=== PATIENT | male | born 1990 | race Caucasian/White ===

== ENCOUNTER 2016-07-04 11:15 | Emergency (ER) | payer SELFPAY ==
[2016-07-04] MEDS ORDERED: HYDROMORPHONE HCL 1 MG/ML CPJ IVP ONE ×2 (11:25→15:19)
[2016-07-04] MEDS ORDERED: ONDANSETRON HCL IV 4 MG/2 ML VIAL IVP ONE ×2 (11:25→15:50)
[2016-07-04] MEDS ORDERED: 0.9 % SODIUM CHLORIDE 1,000 ML BAG IV ONE (11:25)
[2016-07-04] MEDS ORDERED: KETOROLAC 30 MG/ML VIAL IVP ONE (11:30)
--- NOTE | 2016-07-04 11:34 | Emergency Department Record ---
History of Present Illness - General Chief complaint: Flank Pain Stated complaint: FRONT/BACK PAIN Time Seen by Provider: 07/04/16 11:25 Source: Patient Mode of Arrival: Ambulatory Limitations: No limitations - History of Present Illness Initial comments: 26 yo male presents with flank pain that started about 2 hours ago. It started abruptly. It is sharp. It is similar pain to prior renal stones. He had a stone about 2 months ago. No fevers or chills. He has associated nausea. No surgical history. MD Complaint: Other (flank pain) Onset/Timin -: Hour(s) Location: Left flank, Right flank, Left inguinal region, Right inguinal region Severity: Moderate Severity scale (1-10): 10 Quality: Sharp, Stabbing Consistency: Constant Improves with: None Worsens with: None - Related Data Previous Rx's Medication Instructions Recorded Hydrocodone/Acetaminophen [[place] 1 tab PO Q6H PRN #15 tab 07/04/16 5mg/325mg] Tamsulosin HCl [Flomax] 0.4 mg PO DAILY #15 cap.er.24h 07/04/16 Allergies Allergy/AdvReac Type Severity Reaction Status Date / Time No Known Drug Allergies Allergy Verified 07/04/16 11:22 Travel Screening - Travel/Exposure Within Last 30 Days Have you traveled within the last 30 days?: No - Travel/Exposure Within Last Year Have you traveled outside the [place] in the last year?: No - Additonal Travel Details Have you been exposed to anyone with a communicable illness?: No - Travel Symptoms Symptom Screening: None Review of Systems Constitutional: Denies: Chills, Fever, Malaise, Weakness Eyes: Denies: Eye discharge ENT: Denies: Congestion, Throat pain Respiratory: Denies: Cough, Dyspnea Cardiovascular: Denies: Chest pain, Palpitations, Syncope Endocrine: Denies: Fatigue Gastrointestinal: Reports: As per HPI, Abdominal pain, Nausea, Vomiting. Denies : Diarrhea, Hematemesis, Hematochezia Genitourinary: Reports: Hematuria. Denies: Dysuria, Incontinence, Retention, Urgency Musculoskeletal: Reports: Back pain. Denies: Arthralgia, Myalgia, Neck pain Skin: Denies: Bruising, Change in color, Rash Neurological: Denies: Headache Psychiatric: Denies: Anxiety Hematological/Lymphatic: Denies: Blood Clots, Easy bleeding, Easy bruising, Swollen glands Past Medical History - SOCIAL HISTORY Smoking Status: Current every day smoker - RESPIRATORY Hx Respiratory Disorders: No - CARDIOVASCULAR Hx Cardio Disorders: No - NEURO Hx Neuro Disorders: No - GI Hx GI Disorders: No - Hx Genitourinary Disorders: Yes Hx Kidney Stones: Yes - ENDOCRINE Hx Endocrine Disorders: No - MUSCULOSKELETAL Hx Musculoskeletal Disorders: No - PSYCH Hx Psych Problems: No - HEMATOLOGY/ONCOLOGY Hx Hematology/Oncology Disorders: No Family Medical History Any Significant Family History?: Yes Physical Exam - General General Appearance: Alert, Oriented x3, Cooperative, Anxious (dueo to pain) Limitations: No limitations - Head Head exam: Normal inspection - Eye Eye exam: Normal appearance, PERRL. negative: Conjunctival injection Pupils: Normal accommodation - ENT ENT exam: Normal exam Ear exam: Normal external inspection Nasal Exam: Normal inspection - Neck Neck exam: Normal inspection, Full ROM. negative: Tenderness - Respiratory Respiratory exam: Normal lung sounds bilaterally. negative: Respiratory distress - Cardiovascular Cardiovascular Exam: Regular rate, Normal rhythm, Normal heart sounds - GI/Abdominal GI/Abdominal exam: Soft. negative: Distended, Guarding, Hernia, Rebound, Rigid , Tenderness - Rectal Rectal exam: Deferred - exam: Deferred - Extremities Extremities exam: Normal inspection, Full ROM, Normal capillary refill. negative: Tenderness - Back Back exam: Reports: Normal inspection, CVA tenderness (R), CVA tenderness (L), Full ROM, Tenderness - Neurological Neurological exam: Alert, Normal gait, Oriented X3, Reflexes normal - Psychiatric Psychiatric exam: Normal affect, Normal mood - Skin Skin exam: Dry, Intact, Normal color, Warm Course - Reevaluation(s) Reevaluation #1: EMR reviewed. Normal prior renal function. CT in 04/2016 demonstrated 4.9mm left sided stone. He did not follow up after that visit given his pain resolved. Further review a CT demonstrated a left ureteral stone also in March. 07/04/16 11:31 07/04/16 11:36 Reevaluation #2: No acute changes on the CBC or CMP CT pending 07/04/16 12:14 Reevaluation #3: The CT demonstrates interval migration of the stone to the bladder or UVJ junction 07/04/16 12:51 The patient was informed of the results His pain is well controlled at 06/30 I explained that the stone has either passed or right at the UVJ He is afebrile, normal WBC count. Will wait to review UA. 07/04/16 12:55 Reevaluation #4: Patient continues to do well with controlled pain Waiting for a UA 07/04/16 14:11 UA just provided Pain is returning now 10 UA is negative for infection with negative LE, negative N, no bacteria or WBC's 07/04/16 15:18 07/04/16 15:43 Reevaluation #5: Given the persist pain and retain stone for 3 months I DANILO Warner of [facility] He will accept ER to ER transfer and likely going to the OR for removal I DANILO Amador of the ED who accepts the patient for transfer. The Patient has been NPO and agrees with the place for surgery 07/04/16 15:57 Medical Decision Making - Lab Data Result diagrams: 07/04/16 11:25 07/04/16 11:38 Disposition Disposition: Transfer Clinical Impression: Kidney stone on left side Disposition: Acute Care Hospital Transfer Transfer To: [facility] Reason For Transfer: Retained Renal Stone Accepting Physician: Brittany Time Discussed w/Accepting Physician: 16:00 Condition: (1) Good Instructions: Renal Colic (ED) Prescriptions: Tamsulosin HCl [Flomax] 0.4 mg PO DAILY #15 cap.er.24h Hydrocodone/Acetaminophen [[place] 5mg/325mg] 1 tab PO Q6H PRN #15 tab PRN Reason: Pain - General Forms: Patient Portal Access Time of Disposition: 15:58
[2016-07-04 11:39] LABS: GRAN % 6.5 % (47-80); HEMATOCRIT 49.6 % (42.0-52.0); HEMOGLOBIN 16.8 gm/dl (14.0-18.0); LYMPH % 2.3 % (16-45); MEAN CELL VOLUME 81.3 fl (81-97); MEAN CORPUSCULAR HEMOGLOBIN 27.5 pg (27-33); MEAN CORPUSCULAR HGB CONC 33.9 g/dl (32-36); MEAN PLATELET VOLUME 12.3 fl (7.4-10.4); PLATELET COUNT 189 K/uL (130-400); WHITE BLOOD COUNT W/O DIFF 9.9 K/uL (4.2-12.2)
[2016-07-04 11:40] LABS: EOS % 0.2 % (0-6); MONO % 0.8 % (0-9)
[2016-07-04 11:48] LABS: ANION GAP 14.4 (7-16); BLOOD UREA NITROGEN 15 mg/dL (9-20); CARBON DIOXIDE 26.6 mmol/L (22-30); EST GLOMERULAR FILTRATION RATE > 60 ml/min; GLUCOSE,RANDOM 124 mg/dL (70-110)
[2016-07-04] MEDS ORDERED: PROMETHAZINE HCL 25 MG/ML VIAL IVP ONE (12:02)
[2016-07-04] MEDS ORDERED: TAMSULOSIN HCL 0.4 MG CAP.ER.24H PO ONE (12:58)
[2016-07-04] MEDS ORDERED: 0.9 % SODIUM CHLORIDE 1000ML 1,000 ML IV ONE (13:48)
[2016-07-04 15:21] LABS: URINE APPEARANCE SL CLOUDY; URINE BILIRUBIN NEGATIVE (NEGATIVE); URINE BLOOD LARGE (NEGATIVE); URINE COLOR ORANGE; URINE GLUCOSE (UA) NEGATIVE (NEGATIVE); URINE KETONE NEGATIVE (NEGATIVE); URINE LEUKOCYTE ESTERASE NEGATIVE (NEGATIVE); URINE NITRITE NEGATIVE (NEGATIVE); URINE PROTEIN TRACE (NEGATIVE); URINE UROBILINOGEN 0.2 E.U./dL (0.20 - 1.00)
[2016-07-04 15:35] LABS: URINE BACTERIA NONE SEEN; URINE CALCIUM OXALATE CRYSTALS 1+ /hpf; URINE EPITHELIAL CELLS 0 - 2 (FEW); URINE WBC NONE SEEN (0-2/hpf)
--- NOTE | 2016-07-08 09:37 | CT SCAN REPORT ---
EXAM: CT OF THE ABDOMEN AND PELVIS WITHOUT CONTRAST HISTORY: FLANK PAIN. PREVIOUS LEFT SIDED STONE. TECHNIQUE: Routine noncontrast CT images of the abdomen and pelvis were obtained. Comparison: 04/26/16. FINDINGS: There is mild bibasilar atelectasis. The liver, gallbladder, pancreas, spleen, and adrenals have a normal noncontrast appearance. There is redemonstration of mild to moderate left hydronephrosis. Interval migration of previously noted left ureteral calculus now located within the posterior bladder at the level of the UVJ. The calculus measures approximately 4-5 mm in size. This could relate to a recently passed bladder calculus versus calculus within the UVJ. The bowel is normal in caliber. The appendix has a normal noncontrast appearance. No abdominal or pelvic lymphadenopathy. The aorta is normal in caliber. No free air or free fluid. Tiny fat containing periumbilical hernia. No acute osseous abnormality. IMPRESSION: INTERVAL MIGRATION OF PREVIOUSLY NOTED LEFT URETERAL CALCULUS. IT IS NOW LOCATED AT THE LEVEL OF THE UVJ. THIS COULD RELATE TO CALCULUS AT THE UVJ VERSUS WITHIN THE BLADDER. NOTE IS MADE OF MODERATE LEFT HYDRONEPHROSIS AND HYDROURETER. JOB NUMBER: [id number] [facility]
== END 2016-07-04 16:23 | disposition short-term general hospital (02) ==
LOC: ER 11:15
DX: N13.2 Hydronephrosis with renal and ureteral calculous obstruction (principal); R11.0 Nausea; Z87.442 Personal history of urinary calculi
CPT/HCPCS: 99285 ×2; 96376; 96374; 96375; 96361; 85025; 80048; 81001; 74176; J1885; J2405; J1170; J2550; J7030

== ENCOUNTER 2016-07-05 21:03 | Emergency (ER) | payer SELFPAY ==
[2016-07-05] MEDS ORDERED: ONDANSETRON HCL IV 4 MG/2 ML VIAL IVP ONE (21:31)
[2016-07-05] MEDS ORDERED: MORPHINE SULFATE 5 MG/ML PFS IVP ONE (21:31)
--- NOTE | 2016-07-05 21:40 | Emergency Department Record ---
History of Present Illness - General Chief Complaint: Abdominal Pain Stated Complaint: KIDNEY STONE PAIN WORSE Time Seen by Provider: 07/05/16 21:31 Source: Patient Mode of Arrival: Ambulatory Limitations: No limitations - History of Present Illness Initial Comments: 26 yo male presents to ED with a CC of left sided "kidney pain", nausea, and vomiting. Patient was seen yesterday and diagnosed with an obstructing kidney stone on the left, sent to [facility] where a stent was placed by Urology. Patient states that his pain worsened today. Patient denies fevers, chills, or recent illness. Patient does not know the name of the urologist who placed the stent. MD Complaint: Flank pain Onset/Timin -: Days(s) Location: L Flank Radiation: LUQ, LLQ Severity: Severe Quality: Sharp, Stabbing Consistency: Constant Improves With: Nothing Worsens With: Nothing Context: Recent surgery/procedure Associated Symptoms: Nausea, Vomiting - Related Data Previous Rx's Medication Instructions Recorded Hydrocodone/Acetaminophen [[place] 1 tab PO Q6H PRN #15 tab 07/04/16 5mg/325mg] Tamsulosin HCl [Flomax] 0.4 mg PO DAILY #15 cap.er.24h 07/04/16 Ondansetron [Zofran Odt] 4 mg PO Q4H PRN #20 tab.rapdis 07/05/16 Allergies Allergy/AdvReac Type Severity Reaction Status Date / Time No Known Drug Allergies Allergy Verified 07/04/16 11:22 Travel Screening - Travel/Exposure Within Last 30 Days Have you traveled within the last 30 days?: No - Travel/Exposure Within Last Year Have you traveled outside the [place] in the last year?: No - Additonal Travel Details Have you been exposed to anyone with a communicable illness?: No - Travel Symptoms Symptom Screening: None Review of Systems Constitutional: Denies: Chills, Fever, Malaise, Night sweats Eyes: Denies: Eye discharge, Eye pain ENT: Denies: Congestion, Ear pain, Epistaxis Respiratory: Denies: Cough, Dyspnea Cardiovascular: Denies: Chest pain, Dyspnea on exertion Endocrine: Denies: Fatigue, Heat or cold intolerance Gastrointestinal: Reports: Abdominal pain, Nausea, Vomiting. Denies: Constipation Genitourinary: Reports: Hematuria. Denies: Incontinence, Retention, Testicular pain Musculoskeletal: Reports: Back pain. Denies: Arthralgia, Gout, Joint swelling Skin: Denies: Bruising, Change in color Neurological: Denies: Abnormal gait, Confusion, Headache, Seizure Psychiatric: Denies: Anxiety Hematological/Lymphatic: Denies: Anemia, Blood Clots Past Medical History - SOCIAL HISTORY Smoking Status: Current every day smoker Alcohol Use: Rare Drug Use Detail:: Marijuana - RESPIRATORY Hx Respiratory Disorders: No - CARDIOVASCULAR Hx Cardio Disorders: No - NEURO Hx Neuro Disorders: No - GI Hx GI Disorders: No - Hx Genitourinary Disorders: Yes Hx Kidney Stones: Yes - ENDOCRINE Hx Endocrine Disorders: No - MUSCULOSKELETAL Hx Musculoskeletal Disorders: No - PSYCH Hx Psych Problems: No - HEMATOLOGY/ONCOLOGY Hx Hematology/Oncology Disorders: No Family Medical History Any Significant Family History?: No Physical Exam - General General Appearance: Alert, Oriented x3, Cooperative, Moderate distress (due to pain symptoms) Limitations: No limitations - Head Head exam: Atraumatic, Normocephalic, Normal inspection Head exam detail: negative: Abrasion, Contusion, Crooks's sign, General tenderness, Hematoma, Laceration - Eye Eye exam: Normal appearance. negative: Conjunctival injection, Periorbital swelling, Periorbital tenderness, Scleral icterus - ENT Ear exam: negative: Auricular hematoma, Auricular trauma Nasal Exam: negative: Active bleeding, Discharge, Dried blood, Foreign body Mouth exam: negative: Drooling, Laceration, Muffled voice, Tongue elevation - Neck Neck exam: Normal inspection. negative: Meningismus, Tenderness - Respiratory Respiratory exam: Normal lung sounds bilaterally. negative: Respiratory distress, Rhonchi, Stridor, Wheezes - Cardiovascular Cardiovascular Exam: Regular rate, Normal rhythm, Normal heart sounds - GI/Abdominal GI/Abdominal exam: Soft, Tenderness (TTP LLQ on examination, no rebound, guarding or peritoneal signs). negative: Pulsatile mass, Rebound, Rigid - Rectal Rectal exam: Deferred - exam: Deferred - Extremities Extremities exam: Normal inspection. negative: Calf tenderness, Pedal edema, Tenderness - Back Back exam: Reports: CVA tenderness (L). Denies: CVA tenderness (R) - Neurological Neurological exam: Alert, Normal gait, Oriented X3 - Psychiatric Psychiatric exam: Normal affect, Normal mood - Skin Skin exam: Normal color. negative: Abrasion Type of lesion: negative: abrasion Course Vital Signs 07/05/16 21:14 Pulse Rate [ 92 H Pulse Ox Probe] Respiratory 20 Rate Blood Pressure 135/89 [Left Arm] Pulse Ox 97 - Reevaluation(s) Reevaluation #1: 07/05/16 21:38 CT Abdomen and Pelvis reviewed 07/04/16: 4-5 mm obstructing stone to the left UVJ[facility], [facility] was [facility] by Dr. Brodie Warner. UA obtained, will exclude infection and transfer for US and urological evaluation. Reevaluation #2: 07/05/16 21:55 UA reviewed, RBCs TNTC, no bacteria. [facility]. Reevaluation #3: 07/05/16 22:06 Case was discussed with Dr. Warner, will perform KUB film and administer Ditropan and Toradol in ED and reassess. Reevaluation #4: 07/05/16 22:49 Labs reviewed, WBC 20.6, no evidence of infection in the UA. WBC is likely elevated due to recent surgery and vomiting episodes. Abdominal x-ray: Ureteral stent appears in satisfactory positioning. Patient reassessed, reports that his pain symptoms are down to 3/10. Patient appears stable for discharge at this time with instructions to follow-up with Dr. Warenr in 1-3 days as directed. Medical Decision Making - Lab Data Result diagrams: 07/05/16 21:23 07/05/16 21:23 Disposition Disposition: Discharge Clinical Impression: Flank pain Disposition: Home, Self-Care Condition: (2) Stable Instructions: Flank Pain (ED) Additional Instructions: Return to ED if your symptoms worsen or if you have any concerns. Zofran as directed in addition to Ditropan and [place] that has been previously prescribed. Follow-up with Dr. Warner in 1-3 days as directed. Prescriptions: Ondansetron [Zofran Odt] 4 mg PO Q4H PRN #20 tab.rapdis PRN Reason: Nausea/Vomiting Forms: Patient Portal Access Time of Disposition: 22:54
[2016-07-05 21:44] LABS: URINE APPEARANCE CLOUDY; URINE BILIRUBIN MODERATE (NEGATIVE); URINE BLOOD LARGE (NEGATIVE); URINE COLOR RED; URINE GLUCOSE (UA) NEGATIVE (NEGATIVE); URINE KETONE TRACE (NEGATIVE); URINE LEUKOCYTE ESTERASE MODERATE (NEGATIVE)
[2016-07-05] MEDS ORDERED: 0.9 % SODIUM CHLORIDE 1000ML 1,000 ML IV SCH (21:45)
[2016-07-05 21:46] LABS: URINE NITRITE NEGATIVE (NEGATIVE); URINE PROTEIN 300 mg/dL (NEGATIVE)
[2016-07-05 21:48] LABS: URINE BACTERIA NONE SEEN; URINE EPITHELIAL CELLS 0 - 2 (FEW); URINE RBC TNTC (NONE SEEN); URINE WBC 0 - 2 (0-2/hpf)
[2016-07-05] MEDS ORDERED: OXYBUTYNIN CHLORIDE 5MG TABLET PO ONE (22:04)
[2016-07-05] MEDS ORDERED: KETOROLAC 30 MG/ML VIAL IVP ONE (22:04)
[2016-07-05 22:15] LABS: HEMATOCRIT 45.1 % (42.0-52.0); HEMOGLOBIN 15.3 gm/dl (14.0-18.0); MEAN CELL VOLUME 81.6 fl (81-97); MEAN CORPUSCULAR HEMOGLOBIN 27.7 pg (27-33); MEAN CORPUSCULAR HGB CONC 33.9 g/dl (32-36); MEAN PLATELET VOLUME 12.9 fl (7.4-10.4); PLATELET COUNT 182 K/uL (130-400); RED BLOOD COUNT 5.53 M/uL (4.40-5.70); RED CELL DISTRIBUTION WIDTH 13.4 % (11.5-14.5)
[2016-07-05 22:20] LABS: WHITE BLOOD COUNT W/O DIFF 20.6 K/uL (4.2-12.2)
[2016-07-05 22:27] LABS: ALB/GLOB RATIO 1.7 (1.1-1.8); ALBUMIN 4.6 gm/dL (3.5-5.0); ALKALINE PHOSPHATASE 101 U/L (38-126); ALT/SGPT 57 U/L (21-72); ANION GAP 16.2 (7-16); AST/SGOT 37 U/L (17-59); BILIRUBIN,TOTAL 0.59 mg/dL (0.2-1.3); BLOOD UREA NITROGEN 13 mg/dL (9-20); CARBON DIOXIDE 25.8 mmol/L (22-30); CREATININE 0.8 mg/dL (0.66-1.25); EST GLOMERULAR FILTRATION RATE > 60 ml/min; GLUCOSE,RANDOM 96 mg/dL (70-110); TOTAL PROTEIN 7.3 gm/dL (6.3-8.2)
[2016-07-05] MEDS ORDERED: ONDANSETRON 4 MG ODT TABLET SL ONE (22:56)
--- NOTE | 2016-07-09 08:36 | RADIOLOGY REPORT ---
EXAM: ABDOMEN KUB, TWO VIEWS HISTORY: STENT PLACEMENT LEFT SIDE KIDNEY STONE. HEMATURIA. TECHNIQUE: Two views of the abdomen KUB was obtained. Comparison: Abdomen and pelvis CT 07/04/16. FINDINGS: Left internal ureteral stent in place. No suspicious calcifications. Nonobstructed bowel gas pattern. IMPRESSION: LEFT INTERNAL URETERAL STENT IN PLACE. NO SUSPICIOUS CALCIFICATIONS. JOB NUMBER: [id number] MTDD
== END 2016-07-05 23:08 | disposition home or self-care (01) ==
LOC: ER 21:03
DX: R10.32 Left lower quadrant pain (principal); R11.2 Nausea with vomiting, unspecified; N20.0 Calculus of kidney; Z96.0 Presence of urogenital implants; Z87.442 Personal history of urinary calculi
CPT/HCPCS: 99284 ×2; 96374; 96375; 96361; 80053; 81001; 85027; 74000; J1885; J2405; J3490; J2270; J7030

== ENCOUNTER 2016-07-06 14:10 | Emergency (ER) | payer SELFPAY ==
--- NOTE | 2016-07-06 14:29 | Emergency Department Record ---
History of Present Illness - General Chief complaint: Male Urogenital Problem Stated complaint: SEVERE BACK PAIN (KIDNEY) Time Seen by Provider: 07/06/16 14:28 Source: Patient Mode of Arrival: Ambulatory Limitations: No limitations - History of Present Illness Initial comments: The patient is here due to a worsening of his L flank pain. He was here in the ED 2 days ago and diagnosed with a 5 mm L UVJ stone and was transferred to [facility] where Dr. Warner placed a L ureteral stent. The patient returned last evening due to increasing pain and was treated with pain medicines and discharged home about 12 hours ago. Now the patient states his pain returned about 10 hours ago and due to the severe nature of the pain he decided to return to [facility]. He denies any fever or chills. MD Complaint: Dysuria, Other Onset/Timin -: Days(s) Location: Left flank, Left testicle Radiation: L flank Severity: Severe Severity scale (1-10): 10 Quality: Sharp, Stabbing Consistency: Intermittent Improves with: Other Worsens with: None Reports: Blood in urine - Related Data Sexually active: Yes Previous Rx's Medication Instructions Recorded Hydrocodone/Acetaminophen [[place] 1 tab PO Q6H PRN #15 tab 07/04/16 5mg/325mg] Tamsulosin HCl [Flomax] 0.4 mg PO DAILY #15 cap.er.24h 07/04/16 Ondansetron [Zofran Odt] 4 mg PO Q4H PRN #20 tab.rapdis 07/05/16 Hydrocodone/Acetaminophen [[place] 1 - 2 each PO .EVERY 4-6 HRS PRN 07/06/16 5-325 Tablet] #20 tablet Allergies Allergy/AdvReac Type Severity Reaction Status Date / Time No Known Drug Allergies Allergy Verified 07/06/16 14:18 Travel Screening - Travel/Exposure Within Last 30 Days Have you traveled within the last 30 days?: No - Travel/Exposure Within Last Year Have you traveled outside the [place] in the last year?: No - Additonal Travel Details Have you been exposed to anyone with a communicable illness?: No - Travel Symptoms Symptom Screening: None Review of Systems Constitutional: Denies: Chills, Fever Eyes: Denies: Eye discharge ENT: Denies: Congestion Respiratory: Denies: Cough, Dyspnea Past Medical History - SOCIAL HISTORY Smoking Status: Current some day smoker Alcohol Use: Rare Drug Use: Heavy Drug Use Detail:: Marijuana - RESPIRATORY Hx Respiratory Disorders: No - CARDIOVASCULAR Hx Cardio Disorders: No - NEURO Hx Neuro Disorders: No - GI Hx GI Disorders: No - Hx Genitourinary Disorders: Yes Hx Kidney Stones: Yes - ENDOCRINE Hx Endocrine Disorders: No - MUSCULOSKELETAL Hx Musculoskeletal Disorders: No - PSYCH Hx Psych Problems: No - HEMATOLOGY/ONCOLOGY Hx Hematology/Oncology Disorders: No Family Medical History Any Significant Family History?: No Physical Exam - General General Appearance: Alert, Cooperative, Mild distress (due to flank pain.) - Head Head exam: Normal inspection - Neck Neck exam: Normal inspection, Full ROM. negative: Tenderness - Respiratory Respiratory exam: Normal lung sounds bilaterally. negative: Respiratory distress - Cardiovascular Cardiovascular Exam: Regular rate, Normal rhythm, Normal heart sounds - GI/Abdominal GI/Abdominal exam: Soft, Tenderness (LUQ and the L flank.) - Extremities Extremities exam: Normal inspection, Full ROM, Normal capillary refill. negative: Tenderness - Neurological Neurological exam: Alert, Normal gait. negative: Abnormal gait, Motor sensory deficit Course Vital Signs 07/06/16 14:18 Temperature 97.9 F Pulse Rate 100 H Respiratory 24 Rate Blood Pressure 129/91 Pulse Ox 96 - Reevaluation(s) Reevaluation #1: The patient is doing much better at this time. His pain is well controlled. 07/06/16 15:31 Reevaluation #2: The patient is doing much better at this time and his pain is well controlled. He denies any nausea or vomiting presently. I did consult with his Urologist Dr. Warner and he would like to see the patient tomorrow at noon in his office to remove the stent. The patient understands and will comply. 07/06/16 16:57 Medical Decision Making - Data Complexity MDM Data: Labs Ordered and/or Reviewed - Lab Data Result diagrams: 07/06/16 14:50 07/06/16 14:50 Disposition Disposition: Discharge Clinical Impression: Flank pain Disposition: Home, Self-Care Condition: (1) Good Instructions: Flank Pain (ED) Additional Instructions: Please take Motrin with your [place]. Please see your Urologist Dr. Warner at noon tomorrow in his office in the [facility] in [place]. Return to the ER for any increased pain, fever, or vomiting. Prescriptions: Hydrocodone/Acetaminophen [[place] 5-325 Tablet] 1 - 2 each PO .EVERY 4-6 HRS PRN #20 tablet PRN Reason: Pain Referrals: GARETT WARNER [MEDICAL DOCTOR] - Forms: Patient Portal Access Time of Disposition: 16:56
[2016-07-06] MEDS ORDERED: 0.9 % SODIUM CHLORIDE 1,000 ML BAG IV ONE ×2 (14:39→15:45)
[2016-07-06] MEDS ORDERED: KETOROLAC 30 MG/ML VIAL IVP ONE ×2 (14:39→16:26)
[2016-07-06] MEDS ORDERED: ONDANSETRON HCL IV 4 MG/2 ML VIAL IVP ONE (14:39)
[2016-07-06 15:05] LABS: BASO % 0.1 % (0-6); EOS % 0.2 % (0-6); GRAN % 79.4 % (47-80); HEMATOCRIT 44.9 % (42.0-52.0); HEMOGLOBIN 15.2 gm/dl (14.0-18.0); LYMPH % 13.7 % (16-45); MEAN CELL VOLUME 82.4 fl (81-97); MEAN CORPUSCULAR HEMOGLOBIN 27.9 pg (27-33); MEAN CORPUSCULAR HGB CONC 33.9 g/dl (32-36); MEAN PLATELET VOLUME 12.1 fl (7.4-10.4); MONO % 6.6 % (0-9); PLATELET COUNT 174 K/uL (130-400); RED BLOOD COUNT 5.45 M/uL (4.40-5.70); RED CELL DISTRIBUTION WIDTH 13.4 % (11.5-14.5); WHITE BLOOD COUNT W/O DIFF 13.6 K/uL (4.2-12.2)
[2016-07-06 15:09] LABS: ANION GAP 14.7 (7-16); BLOOD UREA NITROGEN 16 mg/dL (9-20); CARBON DIOXIDE 27.3 mmol/L (22-30); CREATININE 0.9 mg/dL (0.66-1.25); EST GLOMERULAR FILTRATION RATE > 60 ml/min; GLUCOSE,RANDOM 97 mg/dL (70-110)
[2016-07-06 16:33] LABS: URINE APPEARANCE TURBID; URINE BILIRUBIN SMALL (NEGATIVE); URINE BLOOD LARGE (NEGATIVE); URINE GLUCOSE (UA) NEGATIVE (NEGATIVE); URINE KETONE NEGATIVE (NEGATIVE); URINE LEUKOCYTE ESTERASE SMALL (NEGATIVE); URINE NITRITE POSITIVE (NEGATIVE)
[2016-07-06 16:35] LABS: URINE COLOR RED
[2016-07-06 16:40] LABS: URINE BACTERIA NONE SEEN; URINE EPITHELIAL CELLS 0 - 2 (FEW)
== END 2016-07-06 17:06 | disposition home or self-care (01) ==
LOC: ER 14:10
DX: R10.12 Left upper quadrant pain (principal); R30.0 Dysuria; R31.0 Gross hematuria; N20.0 Calculus of kidney; Z96.0 Presence of urogenital implants
CPT/HCPCS: 99284 ×2; 96376; 96374; 96375; 85025; 80048; 81001; 87086; J1885; J2405; J7030

== ENCOUNTER 2016-07-07 13:54 | Emergency (ER) | payer SELFPAY ==
[2016-07-07] MEDS ORDERED: KETOROLAC 30 MG/ML VIAL IVP ONE (14:08)
--- NOTE | 2016-07-07 14:15 | Emergency Department Record ---
History of Present Illness - General Chief Complaint: Abdominal Pain Stated Complaint: L SIDE PAIN Time Seen by Provider: 07/07/16 14:06 Source: Patient Mode of Arrival: Ambulatory Limitations: No limitations - History of Present Illness Initial Comments: 26 yo male presents after ureteral stent removal at 11am by Dr Warner. He was treated for a recent renal stone. He was in the ER with stent pain after the procedure initially. His procedure was at [facility]. No fevers. The patient states he did get some pain relief when the stone was removed but the original pain never fully resolved. No fever or chills. No vomiting today. MD Complaint: Flank pain Onset/Timin -: Hour(s) Location: LLQ Radiation: None Migration to: No migration Severity: Severe Quality: Sharp Consistency: Constant Improves With: Nothing Worsens With: Nothing Associated Symptoms: Denies other symptoms - Related Data Previous Rx's Medication Instructions Recorded Hydrocodone/Acetaminophen [[place] 1 tab PO Q6H PRN #15 tab 07/04/16 5mg/325mg] Tamsulosin HCl [Flomax] 0.4 mg PO DAILY #15 cap.er.24h 07/04/16 Ondansetron [Zofran Odt] 4 mg PO Q4H PRN #20 tab.rapdis 07/05/16 Hydrocodone/Acetaminophen [[place] 1 - 2 each PO .EVERY 4-6 HRS PRN 07/06/16 5-325 Tablet] #20 tablet Ciprofloxacin HCl [Cipro] 500 mg PO Q12HR #14 tablet 07/07/16 Naproxen [Naprosyn] 500 mg PO Q12H #20 tab. 07/07/16 Allergies Allergy/AdvReac Type Severity Reaction Status Date / Time No Known Drug Allergies Allergy Verified 07/07/16 14:03 Travel Screening - Travel/Exposure Within Last 30 Days Have you traveled within the last 30 days?: No Review of Systems Constitutional: Denies: Chills, Fever, Malaise, Weakness Eyes: Denies: Eye discharge, Eye pain, Photophobia ENT: Denies: Congestion, Throat pain Respiratory: Denies: Cough, Dyspnea, Hemoptysis, Stridor, Wheezes Cardiovascular: Denies: Chest pain, Palpitations, Syncope Endocrine: Denies: Fatigue Gastrointestinal: Reports: As per HPI, Abdominal pain, Nausea, Vomiting. Denies : Diarrhea Genitourinary: Reports: Dysuria. Denies: Frequency, Hematuria, Incontinence Musculoskeletal: Reports: As per HPI, Back pain. Denies: Arthralgia, Neck pain Skin: Denies: Bruising, Change in color, Rash Neurological: Denies: Headache Psychiatric: Denies: Anxiety Hematological/Lymphatic: Denies: Blood Clots, Easy bleeding, Easy bruising, Swollen glands Past Medical History - SOCIAL HISTORY Smoking Status: Current some day smoker Alcohol Use: None Drug Use: Occassional Drug Use Detail:: Marijuana - RESPIRATORY Hx Respiratory Disorders: No - CARDIOVASCULAR Hx Cardio Disorders: No - NEURO Hx Neuro Disorders: No - GI Hx GI Disorders: No - Hx Genitourinary Disorders: Yes Hx Kidney Stones: Yes - ENDOCRINE Hx Endocrine Disorders: No - MUSCULOSKELETAL Hx Musculoskeletal Disorders: No - PSYCH Hx Psych Problems: No - HEMATOLOGY/ONCOLOGY Hx Hematology/Oncology Disorders: No Family Medical History Any Significant Family History?: No Physical Exam - General General Appearance: Alert, Oriented x3, Cooperative, No acute distress Limitations: No limitations - Head Head exam: Normal inspection - Eye Eye exam: Normal appearance, PERRL. negative: Conjunctival injection, Scleral icterus - ENT ENT exam: Normal exam Ear exam: Normal external inspection Nasal Exam: Normal inspection Mouth exam: Normal external inspection Teeth exam: Normal inspection Throat exam: Normal inspection - Neck Neck exam: Normal inspection - Respiratory Respiratory exam: Normal lung sounds bilaterally. negative: Respiratory distress - Cardiovascular Cardiovascular Exam: Regular rate, Normal rhythm, Normal heart sounds - GI/Abdominal GI/Abdominal exam: Soft, Tenderness (mild left flank, no bruising or redness). negative: Guarding - Rectal Rectal exam: Deferred - exam: Deferred - Extremities Extremities exam: Normal inspection, Full ROM, Normal capillary refill. negative: Tenderness - Back Back exam: Reports: Normal inspection, Full ROM. Denies: Muscle spasm, Rash noted, Tenderness - Neurological Neurological exam: Alert, Normal gait, Oriented X3 - Psychiatric Psychiatric exam: Anxious - Skin Skin exam: Dry, Intact, Normal color, Warm. negative: Cyanosis, Diaphoretic, Erythema Course Vital Signs 07/07/16 13:59 Temperature 97.8 F Pulse Rate 90 Respiratory 22 Rate Blood Pressure 147/117 Pulse Ox 98 - Reevaluation(s) Reevaluation #1: vitals reviewed No fever or tachycardia Request will be made for [facility] records 07/07/16 14:08 07/07/16 14:20 Reevaluation #2: No acute changes on the CBC or BMP 07/07/16 15:01 Reevaluation #3: UA's reviewed for the last 3 days. No bacteria. 07/07/16 15:06 07/07/16 18:35 Reevaluation #4: Pain is controlled at this time I strongly encouraged him to follow up with Dr Warner as needed for intermittent pain. The patient is eager to leave requesting DC now His WBC count is normal, he has no pain or fever 07/07/16 15:15 The UA was reviewed after the patient requested DC He has a few bacteria A prescription for Cipro was called into [facility] He was called and he will fill this Rx tonight He was instructed to call if any concerns such as pain, fever or questions 07/07/16 18:33 07/07/16 18:35 Medical Decision Making - Lab Data Result diagrams: 07/07/16 14:23 07/07/16 14:23 Disposition Disposition: Discharge Clinical Impression: Acute flank pain Disposition: Home, Self-Care Condition: (1) Good Instructions: Flank Pain (ED) Additional Instructions: Call Dr Warner if you have any return of pain, fever or concerns Stay well hydrated Prescriptions: Ciprofloxacin HCl [Cipro] 500 mg PO Q12HR #14 tablet Naproxen [Naprosyn] 500 mg PO Q12H #20 tab Forms: Patient Portal Access Time of Disposition: 15:07
[2016-07-07 14:29] LABS: BASO % 0.3 % (0-6); EOS % 0.9 % (0-6); GRAN % 75.2 % (47-80); HEMATOCRIT 43.9 % (42.0-52.0); LYMPH % 16.1 % (16-45); MEAN CELL VOLUME 81.6 fl (81-97); MEAN CORPUSCULAR HEMOGLOBIN 27.9 pg (27-33); MEAN CORPUSCULAR HGB CONC 34.2 g/dl (32-36); MEAN PLATELET VOLUME 11.9 fl (7.4-10.4); MONO % 7.5 % (0-9); PLATELET COUNT 183 K/uL (130-400); RED BLOOD COUNT 5.38 M/uL (4.40-5.70); RED CELL DISTRIBUTION WIDTH 13.2 % (11.5-14.5); WHITE BLOOD COUNT W/O DIFF 10.2 K/uL (4.2-12.2)
[2016-07-07 14:53] LABS: BLOOD UREA NITROGEN 17 mg/dL (9-20); CREATININE 0.8 mg/dL (0.66-1.25); EST GLOMERULAR FILTRATION RATE > 60 ml/min; GLUCOSE,RANDOM 108 mg/dL (70-110)
[2016-07-07 15:31] LABS: URINE APPEARANCE SL CLOUDY; URINE BILIRUBIN NEGATIVE (NEGATIVE); URINE BLOOD LARGE (NEGATIVE); URINE COLOR RED; URINE GLUCOSE (UA) NEGATIVE (NEGATIVE); URINE KETONE NEGATIVE (NEGATIVE); URINE LEUKOCYTE ESTERASE TRACE (NEGATIVE); URINE NITRITE POSITIVE (NEGATIVE)
[2016-07-07 15:32] LABS: URINE BACTERIA FEW; URINE EPITHELIAL CELLS NONE SEEN (FEW)
== END 2016-07-07 15:31 | disposition home or self-care (01) ==
LOC: ER 13:54
DX: R10.32 Left lower quadrant pain (principal); Z87.442 Personal history of urinary calculi; R82.99 Other abnormal findings in urine
CPT/HCPCS: 99283; 96374; 99284; 85025; 80048; 81001; 87086; J1885

== ENCOUNTER 2016-11-27 01:36 | Emergency (ER) | payer SELFPAY ==
[2016-11-27] MEDS ORDERED: PENICILLIN V POTASSIUM 250 MG TAB PO ONE (01:48)
[2016-11-27] MEDS ORDERED: HYDROCODONE/APAP 10/325 TABLET PO ONE (01:48)
[2016-11-27] MEDS ORDERED: KETOROLAC 30 MG/ML VIAL IM ONE (01:48)
--- NOTE | 2016-11-27 01:54 | Emergency Department Record ---
History of Present Illness - General Chief complaint: Dental Stated complaint: FACIAL INFECTION Time Seen by Provider: 11/27/16 01:44 Source: Patient Mode of Arrival: Ambulatory Limitations: No limitations - History of Present Illness Initial comments: 26 yo male presents with one week of dental pain on the right upper. The pain was not well controlled tonight. He has not seen or contacted a dentist. No facial swelling. No fevers. No eye pain or eye swelling. He has some known dental caries. MD complaint: Tooth pain -: Week(s) (1) Location: Tooth # Severity: Moderate Quality: Aching Consistency: Constant Improves with: None Worsens with: Eating Context-Epistaxis: History of similar Context- Dental: History of dental caries Associated Symptoms: Toothache - Related Data Previous Rx's Medication Instructions Recorded Hydrocodone/Acetaminophen [[place] 1 tab PO Q6H PRN #15 tab 11/27/16 7.5mg/325mg] Penicillin V Potassium 500 mg PO Q6H #40 tab 11/27/16 Allergies Allergy/AdvReac Type Severity Reaction Status Date / Time No Known Drug Allergies Allergy Verified 07/07/16 14:03 Review of Systems Constitutional: Denies: Chills, Fever, Weakness Eyes: Denies: Eye discharge, Eye pain, Photophobia, Vision change ENT: Reports: As per HPI, Dental pain. Denies: Congestion, Throat pain Respiratory: Denies: Cough, Dyspnea, Hemoptysis, Stridor, Wheezes Cardiovascular: Denies: Chest pain, Syncope Endocrine: Denies: Fatigue Gastrointestinal: Denies: Abdominal pain, Diarrhea, Nausea, Vomiting Genitourinary: Denies: Dysuria, Frequency, Hematuria Musculoskeletal: Denies: Arthralgia, Back pain, Joint swelling, Myalgia, Neck pain Skin: Denies: Bruising, Change in color, Rash Neurological: Denies: Headache Psychiatric: Denies: Anxiety Hematological/Lymphatic: Denies: Blood Clots, Easy bleeding, Easy bruising, Swollen glands Past Medical History - SOCIAL HISTORY Smoking Status: Current some day smoker Drug Use: Occassional Drug Use Detail:: Marijuana - RESPIRATORY Hx Respiratory Disorders: No - CARDIOVASCULAR Hx Cardio Disorders: No - NEURO Hx Neuro Disorders: No - GI Hx GI Disorders: No - Hx Genitourinary Disorders: Yes Hx Kidney Stones: Yes - ENDOCRINE Hx Endocrine Disorders: No - MUSCULOSKELETAL Hx Musculoskeletal Disorders: No - PSYCH Hx Psych Problems: No - HEMATOLOGY/ONCOLOGY Hx Hematology/Oncology Disorders: No Physical Exam - General General Appearance: Alert, Oriented x3, Cooperative, No acute distress Limitations: No limitations - Head Head exam: Normal inspection - Eye Eye exam: Normal appearance. negative: PERRL, Conjunctival injection, Periorbital swelling, Periorbital tenderness, Scleral icterus - ENT ENT exam: Mucous membranes moist, Normal orophraynx Ear exam: Normal external inspection Nasal Exam: Normal inspection. negative: Discharge, Sinus tenderness Mouth exam: Normal external inspection, Tongue normal Teeth exam: Dental caries, Dental tenderness # (3). negative: Fractured tooth # , Gingival enlargement (No abscess, no gum swelling, no facial swelling) Throat exam: negative: Tonsillar erythema, Tonsillomegaly, R peritonsillar mass , L peritonsillar mass - Neck Neck exam: Normal inspection, Full ROM. negative: Lymphadenopathy, Tenderness - Respiratory Respiratory exam: Normal lung sounds bilaterally. negative: Respiratory distress - Cardiovascular Cardiovascular Exam: Regular rate, Normal rhythm, Normal heart sounds - Extremities Extremities exam: Normal inspection - Neurological Neurological exam: Alert, CN II-XII intact. negative: Motor sensory deficit - Psychiatric Psychiatric exam: Normal affect, Normal mood. negative: Agitated, Anxious - Skin Skin exam: Dry, Intact, Normal color, Warm Course - Reevaluation(s) Reevaluation #1: No visible abscess or swelling Caries noted He will be provided analgesia and referral for dentist 11/27/16 01:52 Disposition Disposition: Discharge Clinical Impression: Pain, dental Disposition: Home, Self-Care Condition: (1) Good Instructions: Toothache (ED) Additional Instructions: Call the number for the dental referral in the morning Return if you have fever, swelling, or any new concerns Prescriptions: Hydrocodone/Acetaminophen [[place] 7.5mg/325mg] 1 tab PO Q6H PRN #15 tab PRN Reason: Pain - General Penicillin V Potassium 500 mg PO Q6H #40 tab Forms: Patient Portal Access Time of Disposition: 01:54
== END 2016-11-27 02:13 | disposition home or self-care (01) ==
LOC: ER 01:36
DX: K02.9 Dental caries, unspecified (principal)
CPT/HCPCS: 99283 ×2; 96372; J1885; J3490

== ENCOUNTER 2017-06-07 11:22 | Emergency (ER) | payer SELFPAY ==
[2017-06-07] MEDS ORDERED: KETOROLAC 30 MG/ML VIAL IM ONE (11:58)
--- NOTE | 2017-06-07 12:02 | Emergency Department Record ---
History of Present Illness - General Chief Complaint: Fall Injury Stated Complaint: FALL/BACK PAIN Time Seen by Provider: 06/07/17 11:55 Source: Patient Mode of Arrival: Ambulatory Limitations: No limitations - History of Present Illness Initial Comments: The patient is here for low back pain. He slipped this AM and landed on his lower back and now is having significant pain to the lumbar region. He states he is having intermittent pain radiating down his R leg but denies any leg numbness, tingling, or weakness. He also is denying any bowel or bladder issues. 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 06/07/17 Allergies Allergy/AdvReac Type Severity Reaction Status Date / Time No Known Drug Allergies Allergy Verified 06/07/17 11:45 Travel Screening - Travel/Exposure Within Last 30 Days Have you traveled within the last 30 days?: No Review of Systems Constitutional: Denies: Chills, Fever Eyes: Denies: Eye discharge ENT: Denies: Congestion Respiratory: Denies: Cough, Dyspnea Past Medical History - SOCIAL HISTORY Smoking Status: Current every day smoker Alcohol Use: None Drug Use: None - RESPIRATORY Hx Respiratory Disorders: No - CARDIOVASCULAR Hx Cardio Disorders: No - NEURO Hx Neuro Disorders: No - GI Hx GI Disorders: No - Hx Genitourinary Disorders: Yes Hx Kidney Stones: Yes - ENDOCRINE Hx Endocrine Disorders: No - MUSCULOSKELETAL Hx Musculoskeletal Disorders: No - PSYCH Hx Psych Problems: No - HEMATOLOGY/ONCOLOGY Hx Hematology/Oncology Disorders: No Family Medical History Any Significant Family History?: No Physical Exam - General General Appearance: Alert, Oriented x3, Cooperative, No acute distress - Eye Eye exam: Normal appearance, PERRL - Neck Neck exam: Normal inspection, Full ROM. negative: Tenderness - Respiratory Respiratory exam: Normal lung sounds bilaterally. negative: Respiratory distress - Cardiovascular Cardiovascular Exam: Regular rate, Normal rhythm, Normal heart sounds - GI/Abdominal GI/Abdominal exam: Soft, Normal bowel sounds. negative: Tenderness - Extremities Extremities exam: Normal inspection, Full ROM, Normal capillary refill. negative: Tenderness - Back Back exam: Reports: Normal inspection, Vertebral tenderness (L3-5. There is no bruising, swelling or erythema appreciated.). Denies: Muscle spasm - Neurological Neurological exam: Alert, Normal gait, Oriented X3, Reflexes normal. negative: Abnormal gait, Altered, Motor sensory deficit Course Vital Signs 06/07/17 11:46 Temperature 97.8 F Pulse Rate 71 Respiratory 16 Rate Blood Pressure 129/78 Pulse Ox 100 - Reevaluation(s) Reevaluation #1: The patient is doing a lot better. His pain is much improved and he is ready for home. 06/07/17 12:58 Medical Decision Making - Data Complexity MDM Data: X-Ray Ordered and/or Reviewed - Radiology Data Radiology results: Report reviewed (Lumbar films: Neg) Disposition Disposition: Discharge Clinical Impression: Lumbar contusion Qualifiers: Encounter type: initial encounter Qualified Code(s): S30.0XXA - Contusion of lower back and pelvis, initial encounter Disposition: Home, Self-Care Condition: (2) Stable Instructions: Acute Low Back Pain (ED) Additional Instructions: Please take the Naprosyn for pain and may use Flexeril when not working or driving. Please see your PCP if not better in 2-3 days. Return to the ER for any worsening symptoms of pain, any leg numbness, weakness, or any bowel or bladder issues. Prescriptions: Cyclobenzaprine HCl [Flexeril] 10 mg PO TID PRN #20 tablet PRN Reason: Pain Naproxen [Naprosyn] 500 mg PO BID #14 tablet.dr Forms: Patient Portal Access Time of Disposition: 13:00 Quality - Quality Measures Quality Measures: N/A - Blood Pressure Screening View Details: Yes Does Patient Have Any of the Following: No Blood Pressure Classification: Pre-Hypertensive BP Reading Systolic Measurement: 110 Diastolic Measurement: 88 Screening for High Blood Pressure: < Pre-Hypertensive BP, F/U Documented > [ G8950] Pre-Hypertensive Follow-up Interventions: Referral to alternative/primary care provider.
--- NOTE | 2017-06-07 13:35 | RADIOLOGY REPORT ---
EXAM: LUMBAR SPINE HISTORY: BACK PAIN. TECHNIQUE: AP, lateral and oblique views of the lumbar spine were performed. FINDINGS: There is normal height and alignment. No evidence of fracture, spondylolysis, or spondylolisthesis. Mild disk space narrowing at L5-S1. IMPRESSION: DISK SPACE NARROWING AT L5-S1. NO EVIDENCE OF FRACTURE. JOB NUMBER: [id number] MTDD
== END 2017-06-07 13:24 | disposition home or self-care (01) ==
LOC: ER 11:22
DX: S30.0XXA Contusion of lower back and pelvis, initial encounter (principal); W10.9XXA Fall (on) (from) unspecified stairs and steps, initial encounter; Y92.009 Unspecified place in unspecified non-institutional (private) residence as the place of occurrence of the external cause
CPT/HCPCS: 99283; 96372; 99284; 72110; J1885

== ENCOUNTER 2018-07-20 17:09 | Emergency (ER) | payer SELFPAY ==
[2018-07-20] MEDS ORDERED: 0.9 % SODIUM CHLORIDE 1000ML 1,000 ML IV ONE (17:23)
[2018-07-20] MEDS ORDERED: ASPIRIN 81 MG CHEWABLE TABLET PO ONE (17:27)
--- NOTE | 2018-07-20 17:27 | Emergency Department Record ---
History of Present Illness - General Chief Complaint: Chest Pain Stated Complaint: CHEST PAIN Time Seen by Provider: 07/20/18 17:22 Source: Patient, RN notes reviewed Mode of Arrival: Ambulatory - History of Present Illness Initial Comments: patient states 30 minutes ago chest pain and he denies cocaine or drugs and he is diaphorectic and he was worked up for chest pain in [place] one year ago. Onset/Timin -: Minutes(s) Onset: During rest Pain Location: Left chest Severity: Moderate Severity scale (1-10): 7 Quality: Aching, Sharp, Tightness Consistency: Constant Improves With: Nothing - Related Data Home Medications Medication Instructions Recorded Confirmed Last Taken No Home Med [NO HOME MEDS] 07/20/18 07/20/18 Unknown Allergies Allergy/AdvReac Type Severity Reaction Status Date / Time No Known Drug Allergies Allergy Verified 07/20/18 17:22 Travel Screening - Travel/Exposure Within Last 30 Days Have you traveled within the last 30 days?: No - Travel/Exposure Within Last Year Have you traveled outside the [place] in the last year?: No - Additonal Travel Details Have you been exposed to anyone with a communicable illness?: No - Travel Symptoms Symptom Screening: None Review of Systems Reviewed: No additional complaints except as noted below Constitutional: Reports: As per HPI. Denies: Chills, Fever, Malaise, Night sweats, Weakness, Weight change Eyes: Reports: As per HPI. Denies: Eye discharge, Eye pain, Photophobia, Vision change ENT: Reports: As per HPI. Denies: Congestion, Dental pain, Ear pain, Epistaxis , Hearing loss, Throat pain Respiratory: Reports: As per HPI. Denies: Cough, Dyspnea, Hemoptysis, Stridor, Wheezes Cardiovascular: Reports: As per HPI, Chest pain. Denies: Arrhythmia, Dyspnea on exertion, Edema, Murmurs, Orthopnea, Palpitations, Paroxysmal nocturnal dyspnea, Rheumatic Fever, Syncope Endocrine: Reports: As per HPI. Denies: Fatigue, Heat or cold intolerance, Polydipsia, Polyuria Gastrointestinal: Reports: As per HPI. Denies: Abdominal pain, Constipation, Diarrhea, Hematemesis, Hematochezia, Melena, Nausea, Vomiting Genitourinary: Reports: As per HPI. Denies: Dysuria, Frequency, Hematuria, Incontinence, Retention, Testicular pain, Testicular mass, Urgency Musculoskeletal: Reports: As per HPI. Denies: Arthralgia, Back pain, Gout, Joint swelling, Myalgia, Neck pain Skin: Reports: As per HPI. Denies: Bruising, Change in color, Change in hair/ nails, Lesions, Pruritus, Rash Neurological: Reports: As per HPI. Denies: Abnormal gait, Confusion, Headache, Numbness, Paresthesias, Seizure, Tingling, Tremors, Vertigo, Weakness Psychiatric: Reports: As per HPI. Denies: Anxiety, Auditory hallucinations, Depression, Homicidal thoughts, Suicidal thoughts, Visual hallucinations Hematological/Lymphatic: Reports: As per HPI. Denies: Anemia, Blood Clots, Easy bleeding, Easy bruising, Swollen glands Past Medical History - SOCIAL HISTORY Smoking Status: Heavy tobacco smoker (>10/day) Alcohol Use: None Drug Use Detail:: Marijuana - RESPIRATORY Hx Respiratory Disorders: No - CARDIOVASCULAR Hx Cardio Disorders: No - NEURO Hx Neuro Disorders: No - GI Hx GI Disorders: No - Hx Genitourinary Disorders: Yes Hx Kidney Stones: Yes - ENDOCRINE Hx Endocrine Disorders: No - MUSCULOSKELETAL Hx Musculoskeletal Disorders: No - PSYCH Hx Psych Problems: No - HEMATOLOGY/ONCOLOGY Hx Hematology/Oncology Disorders: No Family Medical History Any Significant Family History?: Yes Physical Exam - General General Appearance: Alert, Oriented x3, Cooperative, No acute distress - Head Head exam: Normal inspection - Eye Eye exam: Normal appearance, PERRL Pupils: Normal accommodation - ENT ENT exam: Normal exam, Mucous membranes moist, Normal external ear exam, Normal orophraynx, TM's normal bilaterally Ear exam: Normal external inspection. negative: External canal tenderness Nasal Exam: Normal inspection. negative: Discharge, Sinus tenderness Mouth exam: Normal external inspection, Tongue normal Teeth exam: Normal inspection. negative: Dental caries Throat exam: Normal inspection. negative: Tonsillar erythema, Tonsillar exudate - Neck Neck exam: Normal inspection, Full ROM. negative: Tenderness - Respiratory Respiratory exam: Normal lung sounds bilaterally. negative: Respiratory distress - Cardiovascular Cardiovascular Exam: Regular rate, Normal rhythm, Normal heart sounds - GI/Abdominal GI/Abdominal exam: Soft, Normal bowel sounds. negative: Tenderness - Rectal Rectal exam: Deferred - exam: Deferred - Extremities Extremities exam: Normal inspection, Full ROM, Normal capillary refill. negative: Tenderness - Back Back exam: Reports: Normal inspection, Full ROM. Denies: Muscle spasm, Rash noted, Tenderness - Neurological Neurological exam: Alert, Normal gait, Oriented X3, Reflexes normal - Psychiatric Psychiatric exam: Normal affect, Normal mood - Skin Skin exam: Dry, Intact, Normal color, Warm Course Vital Signs 07/20/18 17:11 Temperature 98.0 F Pulse Rate 91 H Respiratory 24 Rate Blood Pressure 140/104 Pulse Ox 100 - Reevaluation(s) Reevaluation #1: discussed case with Dr Robby Pederson and will [facility] 07/20/18 17:37 Medical Decision Making - Data Complexity MDM Data: EKG Ordered and/or Reviewed (EKG st elevation 2,3,avf) - Lab Data Result diagrams: 07/20/18 17:15 07/20/18 17:15 Disposition Clinical Impression: Chest pain Qualifiers: Chest pain type: unspecified Qualified Code(s): R07.9 - Chest pain, unspecified STEMI (ST elevation myocardial infarction) Qualifiers: Involved coronary artery: other inferior wall coronary artery Qualified Code(s) : I21.19 - ST elevation (STEMI) myocardial infarction involving other coronary artery of inferior wall Disposition: Acute Care Hospital Transfer Condition: (2) Stable Forms: Patient Portal Access Quality - Quality Measures Quality Measures: N/A - Blood Pressure Screening Does Patient Have Any of the Following: No Blood Pressure Classification: Hypertensive Reading Systolic Measurement: 140 Diastolic Measurement: 104 Screening for High Blood Pressure: < Pre-Hypertensive BP, F/U Documented > [ G8950] Pre-Hypertensive Follow-up Interventions: Referral to alternative/primary care provider.
[2018-07-20] MEDS ORDERED: HEPARIN SODIUM 1000 UNIT/1 ML 10ML VIAL IVP ONE (17:29)
[2018-07-20] MEDS ORDERED: HEPARIN SODIUM/D5W 25,000 UNITS/500 ML BAG IV SCH (17:30)
[2018-07-20] MEDS: NITROGLYCERIN 0.4MG SL TABLET #25 BTL SL PRN ×2 (17:33→17:41)
[2018-07-20 17:41] LABS: BASO % 0.3 % (0-6); EOS % 1.6 % (0-6); GRAN % 69.9 % (47-80); HEMATOCRIT 50.9 % (42.0-52.0); HEMOGLOBIN 17.2 gm/dl (14.0-18.0); LYMPH % 20.8 % (16-45); MEAN CELL VOLUME 81.6 fl (81-97); MEAN CORPUSCULAR HGB CONC 33.8 g/dl (32-36); MEAN PLATELET VOLUME 12.3 fl (7.4-10.4); MONO % 7.4 % (0-9); PLATELET COUNT 238 K/uL (130-400); RED BLOOD COUNT 6.24 M/uL (4.40-5.70); RED CELL DISTRIBUTION WIDTH 13.8 % (11.5-14.5); WHITE BLOOD COUNT W/O DIFF 10.8 K/uL (4.2-12.2)
[2018-07-20 17:42] LABS: MEAN CORPUSCULAR HEMOGLOBIN 27.5 pg (27-33)
[2018-07-20] MEDS ORDERED: MORPHINE SULFATE 10 MG/ML VIAL IVP ONE (17:47)
[2018-07-20 17:58] LABS: BLOOD UREA NITROGEN 19 mg/dL (6-20); CREATININE 0.9 mg/dL (0.7-1.2); EST GLOMERULAR FILTRATION RATE > 60 mL/min
[2018-07-20 18:01] LABS: GLUCOSE,RANDOM 80 mg/dL (74-109)
== END 2018-07-20 17:54 | disposition short-term general hospital (02) ==
LOC: ER 17:09
DX: I21.19 ST elevation (STEMI) myocardial infarction involving other coronary artery of inferior wall (principal); R61 Generalized hyperhidrosis; F17.210 Nicotine dependence, cigarettes, uncomplicated
CPT/HCPCS: 80048; 84484; 85025; 85730; 93005; 93010; 96374; 96375; 99285; J2270